=== PATIENT | male | born 1955 | race Caucasian/White ===

== ENCOUNTER 2017-05-16 11:34 | Inpatient (IN) | payer SELFPAY ==
[~2017-05-16] VITALS: Ht 185.4 cm; Wt 82.7 kg
[2017-05-16 12:20] LABS: HEMATOCRIT 43.4 % (38.0-50.0); HEMOGLOBIN 14.7 G/DL (12.5-16.6); MCH 28.1 PG (29.0-34.0); MCHC 33.9 G/DL (30.0-36.0); MCV 82.8 FL (86-99); PLATELET COUNT 194 K/uL (156-360); RBC DIS.WIDTH-CV 12.9 % (11.8-14.6); RED BLOOD COUNT 5.24 M/uL (4.00-5.50); WHITE BLOOD COUNT 7.6 K/uL (4.1-10.2)
[2017-05-16 12:31] LABS: CHLORIDE 93 mEq/L (99-109); POTASSIUM 4.5 mEq/L (3.7-5.4)
[2017-05-16 12:32] LABS: SODIUM 135 mEq/L (136-147)
[2017-05-16 12:37] LABS: CREATININE 1.3 mg/dL (0.6-1.3); GFR ESTIMATE (CALCULATED) > 59 mL/min/ (58.99-99999)
[2017-05-16 12:38] LABS: UREA NITROGEN (BUN) 17 mg/dL (9-23)
[2017-05-16 12:41] LABS: TROP-I INTERPRETATION NEGATIVE; TROPONIN-I < 0.01 ng/mL (0.0-0.30)
[2017-05-16 12:43] LABS: GLUCOSE 579 mg/dL (70-99)
[2017-05-16 12:55] LABS: APPEARANCE CLOUDY ((CLEAR)); BILIRUBIN NEGATIVE; BLOOD NEGATIVE; COLOR YELLOW ((YELLOW)); GLUCOSE (STRIP) >=500; KETONES 5; LEUKOCYTES LARGE; NITRITE NEGATIVE; PROTEIN (STRIP) 30; SPECIFIC GRAVITY 1.033 (1.000-1.030); UROBILINOGEN 0.2 MG/DL (0.2-1.0)
[2017-05-16 13:25] LABS: ABS NEUTROPHIL COUNT 6.2; ATYPICAL LYMPHOCYTE 0.9 %; EOSINOPHIL ABS CT 0.1; EOSINOPHILS 0.9 % (0-5.0); LYMPHOCYTES 13.3 % (15.0-45.0); MONOCYTES 3.5 % (0-9.0); SEG.NEUTROPHILS 81.4 % (46.0-76.0); SMUDGE CELLS 5.3
[2017-05-16 13:26] LABS: EPITHELIAL CELLS RARE /HPF; MUCUS NONE SEEN /LPF
[2017-05-16 13:27] LABS: BACTERIA 4+ /HPF; RED BLOOD CELLS NONE SEEN /HPF (0-5); UCUL ADDED? YES; WHITE BLOOD CELLS TNTC /HPF (0-5)
[2017-05-16] MEDS ORDERED: GLUCOPHAGE XR,500 MG PO (15:07)
[2017-05-16] MEDS ORDERED: KELP1 EACH PO (15:08)
[2017-05-16 15:27] VITALS: BP 168/90
[2017-05-16 19:19] VITALS: BP 129/97
[2017-05-16 21:00] LABS: TROP-I INTERPRETATION NEGATIVE; TROPONIN-I < 0.01 ng/mL (0.0-0.30)
[2017-05-17] VITALS (7 sets, daily range): BP systolic 132–176; BP diastolic 62–88
[2017-05-17 01:19] LABS: TROP-I INTERPRETATION NEGATIVE; TROPONIN-I < 0.01 ng/mL (0.0-0.30)
[2017-05-17 07:12] LABS: CHLORIDE 102 MEQ/L (99-109); GFR ESTIMATE (CALCULATED) > 59 mL/min/ (58.99-99999); POTASSIUM 3.9 MEQ/L (3.7-5.4); SODIUM 139 MEQ/L (136-147); UREA NITROGEN (BUN) 14 mg/dL (9-23)
[2017-05-17 07:24] LABS: CREATININE 0.7 MG/DL (0.6-1.3); GLUCOSE 98 mg/dL (70-99)
[2017-05-17 12:45] LABS: APPEARANCE SL.HAZY ((CLEAR)); BILIRUBIN NEGATIVE; BLOOD MODERATE; COLOR YELLOW ((YELLOW)); GLUCOSE (STRIP) 150; KETONES NEGATIVE; LEUKOCYTES SMALL; NITRITE NEGATIVE; PROTEIN (STRIP) 30; SPECIFIC GRAVITY 1.012 (1.000-1.030)
[2017-05-17 12:50] LABS: BACTERIA RARE /HPF; EPITHELIAL CELLS NONE SEEN /HPF; MUCUS TRACE /LPF; RED BLOOD CELLS TNTC /HPF (0-5); WHITE BLOOD CELLS TNTC /HPF (0-5)
[2017-05-18 03:35] VITALS: BP 154/76
[2017-05-18 06:45] LABS: HEMATOCRIT 36.1 % (38.0-50.0); MCH 27.2 PG (29.0-34.0); MCHC 32.7 G/DL (30.0-36.0); MCV 83.2 FL (86-99); PLATELET COUNT 195 K/uL (156-360); RBC DIS.WIDTH-SD 39.6 % (39-53); RED BLOOD COUNT 4.34 M/uL (4.00-5.50); WHITE BLOOD COUNT 4.8 K/uL (4.1-10.2)
[2017-05-18 06:47] LABS: HEMOGLOBIN 11.8 G/DL (12.5-16.6)
[2017-05-18 07:07] LABS: CHLORIDE 101 MEQ/L (99-109); CREATININE 0.6 MG/DL (0.6-1.3); GFR ESTIMATE (CALCULATED) > 59 mL/min/ (58.99-99999); POTASSIUM 3.9 MEQ/L (3.7-5.4); SODIUM 137 MEQ/L (136-147); UREA NITROGEN (BUN) 13 mg/dL (9-23)
[2017-05-18 07:14] LABS: GLUCOSE 159 mg/dL (70-99)
[2017-05-18 07:29] LABS: BASOPHIL (%) 0.2 % (0-1); EOSINOPHIL (%) 2.9 % (0-5); EOSINOPHIL COUNT 0.1 K/uL (0-0.3); IMMATURE GRANULOCYTE (%) 0.4 % (0.0-0.7); LYMPHOCYTE (%) 24.8 % (15-42); LYMPHOCYTE COUNT 1.2 K/uL (1.0-2.8); MONOCYTE (%) 7.9 % (3-12); MONOCYTE COUNT 0.4 K/uL (0-0.8); NEUTROPHIL (%) 63.8 % (45-76); NEUTROPHIL COUNT 3.1 K/uL (1.8-6.4); PLAT.SUFFICIENCY ADEQUATE
[2017-05-18 07:37] VITALS: BP 174/84
[2017-05-18 11:50] VITALS: BP 161/81
[2017-05-18] MEDS ORDERED: AMLODIPINE BESYL5 MG PO (12:17)
[2017-05-18] MEDS ORDERED: TAMSULOSIN HCL0.4 MG PO (12:17)
[2017-05-18] MEDS ORDERED: LISINOPRIL20 MG PO (12:17)
[2017-05-18] MEDS ORDERED: 1ST TIER UNILE1 EAC1 MC (12:34)
[2017-05-18] MEDS ORDERED: GLUCOMETER MC (12:34)
[2017-05-18] MEDS ORDERED: TEST STRIPS MC (12:34)
[2017-05-18] MEDS ORDERED: GLIPIZIDE5 MG PO (12:34)
[2017-05-18] MEDS ORDERED: KEFLEX500 MG PO (12:34)
[2017-05-18] MEDS ORDERED: GLUCOPHAGE850 MG PO (12:34)
== END 2017-05-18 14:59 | disposition home or self-care (01) | DRG 700 ==
LOC: EME 11:34 → EDOF 12:55 → 5SOUTH 12:55 → ENRESERV 13:04 → 5SOUTH 14:58 → ENPENDDIS 05-18 12:31 → 5SOUTH 05-18 14:59
PROVIDERS: Emergency Medicine; Hospitalist; Internal Medicine
DX: T83.511A Infection and inflammatory reaction due to indwelling urethral catheter, initial encounter (principal); E11.65 Type 2 diabetes mellitus with hyperglycemia; I16.0 Hypertensive urgency; E86.0 Dehydration; N40.0 Benign prostatic hyperplasia without lower urinary tract symptoms; I95.1 Orthostatic hypotension; I10 Essential (primary) hypertension; B95.0 Streptococcus, group A, as the cause of diseases classified elsewhere; B95.1 Streptococcus, group B, as the cause of diseases classified elsewhere; Z91.19 Patient's noncompliance with other medical treatment and regimen; Z91.14 Patient's other noncompliance with medication regimen; Z79.4 Long term (current) use of insulin; Z83.3 Family history of diabetes mellitus
CPT/HCPCS: 71045; 80048; 81003; 82948; 84153; 84484; 85025; 87077; 87086; 87147; 87186; 93005; 99281; 99285; J0696; J1650; J1815; J7030